=== PATIENT | male | born 1995 ===

== ENCOUNTER 2018-06-08 11:48 | Emergency (ER) | payer OTHER ==
--- NOTE | 2018-06-08 12:05 | UC ---
Hand/Wrist HPI - HPI Summary HPI Summary: 22 yo male presents with right thumb pain and swelling. He tells me that on 05/28 he sustained a small cut to his right thumb while at work. About a week later noticed some redness and drainage from the area. Since that time has gotten worse. Denies hx of MRSA, numbness, or tingling. Thinks his tetanus is up to date - History Of Current Complaint Stated Complaint: WC-RT THUMB COMPLAINT Time Seen by Provider: 06/08/18 12:04 Hx Obtained From: Patient Onset/Duration: Gradual Onset Severity Initially: Mild Severity Currently: Mild Pain Intensity: 1 Pain Scale Used: 0-10 Numeric - Allergies/Home Medications Allergies/Adverse Reactions: Allergies Allergy/AdvReac Type Severity Reaction Status Date / Time ibuprofen Allergy Unknown swellin of Verified 06/08/18 12:17 eyes PMH/Surg Hx/FS Hx/Imm Hx - Additional Past Medical History Additional PMH: None Previously Healthy: Yes - Surgical History Surgical History: None - Family History Known Family History: Positive: None - Social History Occupation: Employed Full-time Lives: With Family Alcohol Use: Occasionally Substance Use Type: None Smoking Status (MU): Never Smoked Tobacco Review of Systems Constitutional: Negative Skin: Other - Right thumb redness and swelling Respiratory: Negative Cardiovascular: Negative Neurovascular: Negative Musculoskeletal: Negative Neurological: Negative Psychological: Negative All Other Systems Reviewed And Are Negative: Yes Physical Exam - Summary Physical Exam Summary: GENERAL: NAD. WDWN. No pain distress. SKIN: Dorsal right thumb: overlying the IP joint there is moderate erythema, edema, and 3mm scab from area of previous injury. Central 2mm white area with fluctuance. NECK: Supple. Nontender. No lymphadenopathy. CHEST: No accessory muscle use. Breathing comfortably and in no distress. CV: Pulses intact radial and ulnar. MSK: RIGHT THUMB: Moderate superficial skin erythema and edema at the IP joint. FROM. 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 NEURO: Alert. Sensations intact hand and all fingers. PSYCH: Age appropriate behavior. Triage Information Reviewed: Yes Vital Signs: Vital Signs: Temp Pulse Resp BP Pulse Ox 98.5 F 74 16 112/62 99 06/08/18 12:19 06/08/18 12:19 06/08/18 12:19 06/08/18 12:19 06/08/18 12:19 Procedures - Incision and Drainage Right Finger Site: Right dorsal thumb Instrument(s): Needle - 20G Hand/Wrist Course/Dx - Course Course Of Treatment: A time out was performed, witnessed, and signed. The area was cleansed with an alcohol pad. A 20G needle was used to cammy the abscess and copious purulent material was able to be expressed. A culture was obtained and sent to the lab. Pt tolerated procedure well. Bandaged with a band-aid. Rx for clindamycin - Differential Dx/Diagnosis Provider Diagnoses: Right thumb wound infection with abscess Discharge - Sign-Out/Discharge Documenting (check all that apply): Patient Departure - Discharge Plan Condition: Stable Disposition: HOME Prescriptions: Amoxicillin/Clavulanate TAB* [Augmentin TAB 875*] 875 mg PO BID #14 tab Patient Education Materials: Abscess (ED) Referrals: No Primary Care Phys,NOPCP [Primary Care Provider] - Additional Instructions: If you develop a fever, shortness of breath, chest pain, new or worsening symptoms - please call your PCP or go to the ED. - Billing Disposition and Condition Condition: STABLE Disposition: Home
[2018-06-08 12:28] VITALS: BP 112/62
== END 2018-06-08 12:53 | disposition home or self-care (01) ==
LOC: UCCORT 11:48
DX: L02.511 Cutaneous abscess of right hand (principal); B95.61 Methicillin susceptible Staphylococcus aureus infection as the cause of diseases classified elsewhere; B95.4 Other streptococcus as the cause of diseases classified elsewhere; Z16.11 Resistance to penicillins; Z88.6 Allergy status to analgesic agent
CPT/HCPCS: 10060; 87070; 87077; 87186; 87205; 99202; G0463